=== PATIENT | male | born 1985 | race Two or more races ===

== ENCOUNTER 2018-01-11 17:12 | Emergency (ER) | payer OTHER ==
[~2018-01-11] VITALS: Ht 185.4 cm; Wt 88.5 kg
[~2018-01-11 17:12] MED LIST: AMOX1TAB12 PO; CEFADROXIL500 MG PO; CORTISPORIN EAR10 M1 OT; GILTUSS TR TAB1 EACH PO; ORASEP SPRAY30 ML MM; ZYRTEC10 MG PO
== END 2018-01-11 21:53 | disposition home or self-care (01) ==
LOC: ER 17:12
DX: J03.80 Acute tonsillitis due to other specified organisms (principal)

== ENCOUNTER 2018-08-07 13:38 | Outpatient (CLI) | payer OTHER | END 2018-08-07 13:51 | disposition home or self-care (01) | LOC: LAB 13:38 | DX: J11.1 Influenza due to unidentified influenza virus with other respiratory manifestations (principal) ==

== ENCOUNTER 2018-10-22 08:07 | Outpatient (CLI) | payer OTHER | END 2018-10-22 09:18 | disposition home or self-care (01) | LOC: LAB 08:07 | DX: Z11.3 Encounter for screening for infections with a predominantly sexual mode of transmission (principal) ==

== ENCOUNTER 2019-01-17 06:49 | Outpatient (CLI) | payer OTHER | END 2019-01-17 15:45 | disposition home or self-care (01) | LOC: LAB 06:49 | DX: R42 Dizziness and giddiness (principal); E78.49 Other hyperlipidemia; Z00.00 Encounter for general adult medical examination without abnormal findings ==

== ENCOUNTER → 2019-03-18 14:47 | Outpatient (CLI) | payer OTHER | END | disposition home or self-care (01) | LOC: LAB 03-14 12:11 | DX: E78.2 Mixed hyperlipidemia (principal); E55.9 Vitamin D deficiency, unspecified; E03.8 Other specified hypothyroidism; Z13.1 Encounter for screening for diabetes mellitus; Z11.3 Encounter for screening for infections with a predominantly sexual mode of transmission; Z11.4 Encounter for screening for human immunodeficiency virus [HIV] ==

== ENCOUNTER 2019-04-14 15:37 | Outpatient (CLI) | payer OTHER | END 2019-04-14 15:43 | disposition home or self-care (01) | LOC: LAB 15:37 | DX: J11.1 Influenza due to unidentified influenza virus with other respiratory manifestations (principal); B96.0 Mycoplasma pneumoniae [M. pneumoniae] as the cause of diseases classified elsewhere ==

== ENCOUNTER 2019-06-26 07:30 | Outpatient (CLI) | payer OTHER | END 2019-06-26 07:31 | disposition home or self-care (01) | LOC: LAB 07:30 | DX: Z00.00 Encounter for general adult medical examination without abnormal findings (principal); Z11.4 Encounter for screening for human immunodeficiency virus [HIV] ==

== ENCOUNTER 2019-09-04 07:38 | Outpatient (CLI) | payer OTHER | END 2019-09-04 07:39 | disposition home or self-care (01) | LOC: LAB 07:38 | DX: Z00.00 Encounter for general adult medical examination without abnormal findings (principal); Z11.4 Encounter for screening for human immunodeficiency virus [HIV] ==

== ENCOUNTER 2019-09-08 17:38 | Outpatient (CLI) | payer OTHER | END 2019-09-08 18:00 | disposition home or self-care (01) | LOC: LAB 17:38 | DX: J11.1 Influenza due to unidentified influenza virus with other respiratory manifestations (principal); J20.0 Acute bronchitis due to Mycoplasma pneumoniae ==

== ENCOUNTER 2019-09-30 06:15 | Emergency (ER) | payer OTHER ==
[~2019-09-30] VITALS: Ht 185.4 cm; Wt 83.9 kg
== END 2019-09-30 18:05 | disposition home or self-care (01) ==
LOC: ER 06:15
DX: J03.90 Acute tonsillitis, unspecified (principal); R11.2 Nausea with vomiting, unspecified

== ENCOUNTER → 2019-12-05 15:53 | Outpatient (CLI) | payer OTHER | END | disposition home or self-care (01) | LOC: LAB 15:53 | DX: J11.1 Influenza due to unidentified influenza virus with other respiratory manifestations (principal); J06.9 Acute upper respiratory infection, unspecified ==

== ENCOUNTER → 2020-03-08 13:55 | Outpatient (CLI) | payer OTHER | END | disposition home or self-care (01) | LOC: LAB 11:37 | DX: Z00.00 Encounter for general adult medical examination without abnormal findings (principal); Z11.3 Encounter for screening for infections with a predominantly sexual mode of transmission; E78.49 Other hyperlipidemia; E55.9 Vitamin D deficiency, unspecified; I10 Essential (primary) hypertension; N39.0 Urinary tract infection, site not specified ==

== ENCOUNTER 2020-04-26 18:47 | Emergency (ER) | payer OTHER ==
[~2020-04-26] VITALS: Ht 185.4 cm; Wt 88.9 kg
== END 2020-04-26 21:02 | disposition home or self-care (01) ==
LOC: ER 18:47
DX: J03.80 Acute tonsillitis due to other specified organisms (principal)

== ENCOUNTER 2020-05-05 10:42 | Outpatient (CLI) | payer OTHER | END 2020-05-05 10:56 | disposition home or self-care (01) | LOC: LAB 10:42 | PROVIDERS: ATTEND General Practice | DX: J11.1 Influenza due to unidentified influenza virus with other respiratory manifestations (principal); R05 Cough; Z11.59 Encounter for screening for other viral diseases; R53.81 Other malaise; Z20.828 Contact with and (suspected) exposure to other viral communicable diseases ==

== ENCOUNTER → 2020-06-18 06:34 | Outpatient (CLI) | payer OTHER ==
[~2020-06-18 06:34] MED LIST changes: +AMOX-CLAV 875-1 EACH PO
== END | disposition home or self-care (01) ==
LOC: LAB 06-15 14:41
PROVIDERS: ATTEND General Practice
DX: N39.0 Urinary tract infection, site not specified (principal); Z11.3 Encounter for screening for infections with a predominantly sexual mode of transmission; Z00.00 Encounter for general adult medical examination without abnormal findings; E78.49 Other hyperlipidemia; E55.9 Vitamin D deficiency, unspecified; R42 Dizziness and giddiness

== ENCOUNTER → 2020-07-06 14:00 | Outpatient (CLI) | payer OTHER | END | disposition home or self-care (01) | LOC: LAB 14:00 | PROVIDERS: ATTEND General Practice | DX: R05 Cough (principal); Z20.828 Contact with and (suspected) exposure to other viral communicable diseases; R50.9 Fever, unspecified; R06.02 Shortness of breath ==

== ENCOUNTER 2020-07-15 06:47 | Emergency (ER) | payer OTHER ==
[~2020-07-15] VITALS: Ht 185.4 cm; Wt 86.2 kg
[~2020-07-15 06:47] MED LIST changes: -AMOX-CLAV 875-1 EACH PO
[2020-07-15] MEDS ORDERED: AMOX-CLAV 875-1 EACH PO (07:56)
[2020-07-15] MEDS ORDERED: ORASEP SPRAY30 ML MM ×2 (07:58→07:59)
== END 2020-07-15 08:15 | disposition home or self-care (01) ==
LOC: ER 06:47
DX: J03.80 Acute tonsillitis due to other specified organisms (principal)

== ENCOUNTER 2020-07-16 16:02 | Outpatient (CLI) | payer OTHER ==
[~2020-07-16 16:02] MED LIST changes: +AMOX-CLAV 875-1 EACH PO
== END 2020-07-16 17:00 | disposition home or self-care (01) ==
LOC: OFIC 805 16:02
PROVIDERS: ATTEND Otolaryngology Otology & Neurotology
DX: J02.8 Acute pharyngitis due to other specified organisms (principal)

== ENCOUNTER 2020-07-23 10:00 | Outpatient (CLI) | payer OTHER | END 2020-07-23 15:00 | disposition home or self-care (01) | LOC: PPH VACUNA 10:00 | DX: Z23 Encounter for immunization (principal) ==

== ENCOUNTER 2020-07-27 13:50 | Outpatient (CLI) | payer OTHER | END 2020-07-27 13:54 | disposition home or self-care (01) | LOC: LAB 13:50 | PROVIDERS: ATTEND General Practice | DX: R05 Cough (principal); Z00.00 Encounter for general adult medical examination without abnormal findings; Z11.4 Encounter for screening for human immunodeficiency virus [HIV] ==

== ENCOUNTER 2020-09-01 13:49 | Emergency (ER) | payer OTHER ==
[~2020-09-01] VITALS: Ht 185.4 cm; Wt 83.9 kg
== END 2020-09-01 22:30 | disposition home or self-care (01) ==
LOC: ER 13:49
DX: J03.80 Acute tonsillitis due to other specified organisms (principal); R19.7 Diarrhea, unspecified

== ENCOUNTER 2020-09-20 09:49 | Outpatient (CLI) | payer OTHER | END 2020-09-20 09:53 | disposition home or self-care (01) | LOC: LAB 09:49 | DX: Z20.828 Contact with and (suspected) exposure to other viral communicable diseases (principal) ==

== ENCOUNTER 2020-10-19 15:28 | Outpatient (CLI) | payer OTHER | END 2020-10-19 18:00 | disposition home or self-care (01) | LOC: PPH VACUNA 15:28 → LAB 10-27 12:54 → PPH VACUNA 10-27 12:58 | DX: Z23 Encounter for immunization (principal) ==

== ENCOUNTER 2020-11-15 06:39 | Outpatient (CLI) | payer OTHER | END 2020-11-15 07:18 | disposition home or self-care (01) | LOC: LAB 06:39 | DX: Z00.00 Encounter for general adult medical examination without abnormal findings (principal); Z11.4 Encounter for screening for human immunodeficiency virus [HIV] ==

== ENCOUNTER 2021-01-06 15:24 | Outpatient (CLI) | payer OTHER | END 2021-01-06 15:25 | disposition home or self-care (01) | LOC: LAB 15:24 | PROVIDERS: ATTEND General Practice | DX: Z00.00 Encounter for general adult medical examination without abnormal findings (principal); Z11.3 Encounter for screening for infections with a predominantly sexual mode of transmission; E78.5 Hyperlipidemia, unspecified ==

== ENCOUNTER 2021-05-18 06:19 | Outpatient (CLI) | payer OTHER | END 2021-05-18 06:20 | disposition home or self-care (01) | LOC: LAB 06:19 | PROVIDERS: ATTEND Surgery | DX: Z00.00 Encounter for general adult medical examination without abnormal findings (principal) ==

== ENCOUNTER 2021-06-07 14:14 | Outpatient (CLI) | payer OTHER | END 2021-06-07 16:20 | disposition home or self-care (01) | LOC: LAB 14:14 | PROVIDERS: ATTEND General Practice | DX: R06.02 Shortness of breath (principal); Z03.818 Encounter for observation for suspected exposure to other biological agents ruled out; R50.9 Fever, unspecified ==

== ENCOUNTER 2021-06-09 07:15 | Emergency (ER) | payer OTHER ==
[~2021-06-09] VITALS: Ht 185.4 cm; Wt 83.9 kg
== END 2021-06-09 11:28 | disposition home or self-care (01) ==
LOC: ER 07:15
DX: J03.00 Acute streptococcal tonsillitis, unspecified (principal)

== ENCOUNTER → 2021-06-24 10:22 | Outpatient (CLI) | payer OTHER | END | disposition home or self-care (01) | LOC: LAB 10:22 | PROVIDERS: ATTEND Emergency Medicine Pediatric Emergency Medicine | DX: Z03.818 Encounter for observation for suspected exposure to other biological agents ruled out (principal) ==

== ENCOUNTER 2021-08-01 12:55 | Outpatient (CLI) | payer OTHER | END 2021-08-01 13:05 | disposition home or self-care (01) | LOC: PPH VACUNA 12:55 | DX: Z23 Encounter for immunization (principal) ==

== ENCOUNTER 2021-08-31 07:14 | Outpatient (CLI) | payer OTHER | END 2021-08-31 14:40 | disposition home or self-care (01) | LOC: LAB 07:14 | PROVIDERS: ATTEND General Practice | DX: N42.89 Other specified disorders of prostate (principal); Z00.00 Encounter for general adult medical examination without abnormal findings; E78.49 Other hyperlipidemia; E55.9 Vitamin D deficiency, unspecified; Z11.3 Encounter for screening for infections with a predominantly sexual mode of transmission; N39.0 Urinary tract infection, site not specified ==

== ENCOUNTER 2021-09-27 07:17 | Outpatient (CLI) | payer OTHER | END 2021-09-27 07:20 | disposition home or self-care (01) | LOC: TOM 07:17 | PROVIDERS: ATTEND Internal Medicine Cardiovascular Disease | DX: R07.89 Other chest pain (principal); J44.9 Chronic obstructive pulmonary disease, unspecified; R10.84 Generalized abdominal pain; R63.4 Abnormal weight loss ==

== ENCOUNTER 2021-10-05 11:59 | Outpatient (CLI) | payer OTHER | END 2021-10-05 18:00 | disposition home or self-care (01) | LOC: LAB 11:59 | PROVIDERS: ATTEND Emergency Medicine Pediatric Emergency Medicine | DX: Z03.818 Encounter for observation for suspected exposure to other biological agents ruled out (principal) ==

== ENCOUNTER 2021-10-25 11:33 | Outpatient (CLI) | payer OTHER | END 2021-10-25 15:00 | disposition home or self-care (01) | LOC: LAB 11:33 | PROVIDERS: ATTEND Emergency Medicine Pediatric Emergency Medicine | DX: J03.80 Acute tonsillitis due to other specified organisms (principal) ==

== ENCOUNTER 2021-10-26 07:13 | Emergency (ER) | payer OTHER ==
[~2021-10-26] VITALS: Ht 185.4 cm; Wt 83.9 kg
== END 2021-10-26 09:01 | disposition home or self-care (01) ==
LOC: ER 07:13
DX: J35.01 Chronic tonsillitis (principal); H66.91 Otitis media, unspecified, right ear

== ENCOUNTER 2021-10-28 08:00 | Outpatient (CLI) | payer OTHER | END 2021-10-28 15:00 | disposition home or self-care (01) | LOC: LAB 08:00 | PROVIDERS: ATTEND Emergency Medicine Pediatric Emergency Medicine | DX: Z03.818 Encounter for observation for suspected exposure to other biological agents ruled out (principal) ==

== ENCOUNTER 2022-01-09 06:42 | Outpatient (CLI) | payer OTHER | END 2022-01-09 06:44 | disposition home or self-care (01) | LOC: LAB 06:42 | PROVIDERS: ATTEND General Practice | DX: E78.5 Hyperlipidemia, unspecified (principal); Z00.00 Encounter for general adult medical examination without abnormal findings; E55.9 Vitamin D deficiency, unspecified; N39.0 Urinary tract infection, site not specified; R42 Dizziness and giddiness; Z11.3 Encounter for screening for infections with a predominantly sexual mode of transmission ==

== ENCOUNTER 2022-03-01 09:06 | Outpatient (CLI) | payer OTHER | END 2022-03-01 15:00 | disposition home or self-care (01) | LOC: LAB 09:06 | PROVIDERS: ATTEND Emergency Medicine Pediatric Emergency Medicine | DX: U07.1 COVID-19 (principal) ==

== ENCOUNTER 2022-07-26 08:00 | Outpatient (CLI) | payer OTHER | END 2022-07-26 08:05 | disposition home or self-care (01) | LOC: PPH VACUNA 08:00 | PROVIDERS: ATTEND Emergency Medicine Pediatric Emergency Medicine | DX: Z23 Encounter for immunization (principal) ==

== ENCOUNTER 2022-07-26 10:57 | Outpatient (CLI) | payer OTHER | END 2022-07-26 11:02 | disposition home or self-care (01) | LOC: PPH VACUNA 10:57 | PROVIDERS: ATTEND Emergency Medicine Pediatric Emergency Medicine | DX: Z23 Encounter for immunization (principal) ==

== ENCOUNTER → 2022-08-21 | Outpatient (CLI) | payer OTHER | END | disposition home or self-care (01) | LOC: LAB 14:52 | PROVIDERS: ATTEND General Practice | DX: R05.9 Cough, unspecified (principal); R06.02 Shortness of breath; Z20.822 Contact with and (suspected) exposure to COVID-19; R50.9 Fever, unspecified ==

== ENCOUNTER 2022-10-25 12:49 | Outpatient (CLI) | payer OTHER | END 2022-10-25 12:59 | disposition home or self-care (01) | LOC: LAB 12:49 | PROVIDERS: ATTEND Obstetrics & Gynecology | DX: Z20.828 Contact with and (suspected) exposure to other viral communicable diseases (principal); Z20.818 Contact with and (suspected) exposure to other bacterial communicable diseases ==

== ENCOUNTER 2022-11-29 11:04 | Outpatient (CLI) | payer OTHER | END 2022-11-29 11:15 | disposition home or self-care (01) | LOC: LAB 11:04 → EDBD 11:04 → LAB 11:15 | PROVIDERS: ATTEND Obstetrics & Gynecology | DX: R05.9 Cough, unspecified (principal); R50.9 Fever, unspecified; R06.02 Shortness of breath; Z20.822 Contact with and (suspected) exposure to COVID-19 ==

== ENCOUNTER 2023-03-29 14:35 | Outpatient (CLI) | payer OTHER | END 2023-03-29 14:38 | disposition home or self-care (01) | LOC: LAB 14:35 | PROVIDERS: ATTEND General Practice | DX: R50.9 Fever, unspecified (principal); R05.9 Cough, unspecified; Z20.822 Contact with and (suspected) exposure to COVID-19 ==

== ENCOUNTER → 2023-07-05 | Outpatient (CLI) | payer OTHER | END | disposition home or self-care (01) | LOC: PPH VACUNA 08:59 | PROVIDERS: ATTEND Emergency Medicine Pediatric Emergency Medicine | DX: Z23 Encounter for immunization (principal) ==

== ENCOUNTER → 2024-01-11 | Outpatient (CLI) | payer OTHER ==
[2024-01-11 07:38] LABS: HEMATOCRIT 45.7 % (39.0-48.0); MEAN CORPUSCULAR HEMOGLOBIN 30.4 pg (27.00-32.0); MEAN CORPUSCULAR HGB CONC 34.9 g/dl (32.0-36.0); PLATELET COUNT 276 K/uL (150-450); RED BLOOD COUNT 5.26 M/uL (4.00-6.00); RED CELL DISTRIBUTION WIDTH 14.6 % (11.5-14.5)
[2024-01-11 07:40] LABS: URINE APPEARANCE Clear; URINE BILIRRUBIN Negative (NEGATIVE); URINE BLOOD Negative; URINE COLOR Yellow; URINE GLUCOSE Negative (NEGATIVE); URINE LEUKOCYTE Negative; URINE NITRATE Negative; URINE PROTEIN Trace (NEGATIVE)
[2024-01-11 07:44] LABS: URINE BACTERIA 12.5 uL (0.0-1933); URINE EPITHELIAL CELLS 2.4 uL (0.0-38.8); URINE RBC 4.8 uL (0.0-20.8); URINE WBC 8.3 uL (0.0-23.2)
[2024-01-11 08:10] LABS: ALBUMIN 3.9 gm/dL (3.4-5.0); ALKALINE PHOSPHATASE 69 U/L (50-136); ALT/SGPT 35 U/L (12-78); ANION GAP 5 (10.0-20.0); AST/SGOT 10 U/L (15-37); BILIRUBIN TOTAL 0.28 mg/dL (0.3-1.2); BILIRUBIN,CONJUGATED < 0.10 mg/dL (0.0-0.2); BILIRUBIN,UNCONJUGATED 0.18 mg/dL (0.0-0.6); BLOOD UREA NITROGEN 13 mg/dL (7-18); BUN CREA RATIO 13 (7.0-25.0); CALCIUM 8.8 mg/dL (8.5-10.1); CARBON DIOXIDE 32 mEq/L (21-32); CHLORIDE 106 mmol/L (98-107); CHOL HDL RATIO 5.5 (0-5.0); CHOLESTEROL 186 mg/dL (0-200); CREATININE SERUM 1.03 mg/dL (0.70-1.30); GLOBULINA 3.8 G/DL (2.4-3.5); GLUCOSE FASTING 115 mg/dL (65-100); HDL 34 mg/dl (40-60); LDL 103 mg/dl (0-130); OSMOLALITY SERUM 279 MOSM/KG (275-295); POTASSIUM 4.04 mEq/L (3.5-5.1); SODIUM 139 mmol/L (136-145); T3 UPTAKE 35 % (33-40); TOTAL PROTEIN 7.7 gm/dL (6.4-8.2); VLDL 49 (0-39)
[2024-01-11 08:12] LABS: TRIGLYCERIDES 247 mg/dL (0-150)
[2024-01-11 09:48] LABS: T3 TOTAL 1.38 ng/ml (0.846-2.02); VITAMIN D3 25 HYDROXY 32.39 ng/ml (30-120)
== END | disposition home or self-care (01) ==
LOC: LAB 01-07 14:52
PROVIDERS: ATTEND General Practice
DX: Z00.00 Encounter for general adult medical examination without abnormal findings (principal); E78.5 Hyperlipidemia, unspecified; E55.9 Vitamin D deficiency, unspecified; N39.0 Urinary tract infection, site not specified; R42 Dizziness and giddiness; R10.9 Unspecified abdominal pain

== ENCOUNTER 2024-08-14 13:28 | Outpatient (CLI) | payer OTHER | END 2024-08-14 15:05 | disposition home or self-care (01) | LOC: LAB 13:28 | DX: J10.1 Influenza due to other identified influenza virus with other respiratory manifestations (principal); Z11.52 Encounter for screening for COVID-19 ==

== ENCOUNTER 2025-02-05 08:47 | Outpatient (CLI) | payer OTHER ==
[2025-02-05 10:20] LABS: HEMATOCRIT 46.6 % (39.0-48.0); HEMOGLOBIN 15.6 g/dL (13-16.00); MEAN CELL VOLUME 89.6 fL (80.0-100.00); MEAN CORPUSCULAR HEMOGLOBIN 29.9 pg (27.00-32.0); MEAN CORPUSCULAR HGB CONC 33.4 g/dl (32.0-36.0); PLATELET COUNT 261 K/uL (150-450); RED CELL DISTRIBUTION WIDTH 14.7 % (11.5-14.5)
[2025-02-05 11:10] LABS: ALBUMIN 3.9 gm/dL (3.4-5.0); BILIRUBIN TOTAL 0.46 mg/dL (0.3-1.2); CALCIUM 8.7 mg/dL (8.5-10.1); CHOL HDL RATIO 3.9 (0-5.0); CREATININE SERUM 0.91 mg/dL (0.70-1.30); GFR 92.27; GLOBULINA 3.9 G/DL (2.4-3.5); POTASSIUM 4.29 mEq/L (3.5-5.1); TOTAL PROTEIN 7.8 gm/dL (6.4-8.2); TSH 1.85 uIU/mL (0.358-3.74)
[2025-02-06 09:07] LABS: hav igm Negative (Negative); hcv Non Reactive (Non Reactive); hep b c Negative (Negative); hep b s ag Negative (Negative)
[2025-02-06 11:11] LABS: INSULIN LEVELS 11.5 uIU/mL (2.6-24.9)
[2025-02-06 13:06] LABS: a:g ratio 1.1 (0.7-1.7); alpha 1 g 0.2 g/dL (0.0-0.4); alpha 2 0.6 g/dL (0.4-1.0); beta g 1.2 g/dL (0.7-1.3); gamma g 1.5 g/dL (0.4-1.8); globulin t 3.5 g/dL (2.2-3.9); m spike Not Observed g/dL (Not Observed); prot total 7.4 g/dL (6.0-8.5)
== END 2025-02-05 08:54 | disposition home or self-care (01) ==
LOC: LAB 08:47 → EDBD 08:47 → LAB 08:54
PROVIDERS: ATTEND Internal Medicine
DX: D64.9 Anemia, unspecified (principal); E11.9 Type 2 diabetes mellitus without complications; Z00.00 Encounter for general adult medical examination without abnormal findings; I10 Essential (primary) hypertension

== ENCOUNTER 2025-03-03 14:05 | Outpatient (CLI) | payer OTHER ==
[2025-03-03 14:51] LABS: COVID-19 AG NEGATIVE (NEGATIVE)
[2025-03-03 14:52] LABS: INFLUENZA A AG NEGATIVE (NEGATIVE)
== END 2025-03-03 14:08 | disposition home or self-care (01) ==
LOC: LAB 14:05
PROVIDERS: ATTEND Preventive Medicine Occupational Medicine
DX: Z20.828 Contact with and (suspected) exposure to other viral communicable diseases (principal); J11.1 Influenza due to unidentified influenza virus with other respiratory manifestations

== ENCOUNTER 2025-06-01 12:08 | Emergency (ER) | payer OTHER ==
[~2025-06-01] VITALS: Ht 185.4 cm; Wt 90.7 kg
[2025-06-01] MEDS ORDERED: KETOROLAC TROMETHAMINE 30 MG VIAL IV ONE (13:15)
== END 2025-06-02 18:14 | disposition home or self-care (01) ==
LOC: ER 12:08
DX: I10 Essential (primary) hypertension (principal)

== ENCOUNTER 2025-06-16 08:43 | Outpatient (CLI) | payer OTHER ==
[2025-06-16 13:08] LABS: COVID-19 AG NEGATIVE (NEGATIVE)
== END 2025-06-16 12:44 | disposition home or self-care (01) ==
LOC: LAB 08:43
PROVIDERS: ATTEND Preventive Medicine Occupational Medicine
DX: J11.1 Influenza due to unidentified influenza virus with other respiratory manifestations (principal); Z20.828 Contact with and (suspected) exposure to other viral communicable diseases

== ENCOUNTER 2025-09-16 06:30 | Outpatient (CLI) | payer OTHER ==
[2025-09-16 06:54] LABS: BASO % 0.3 % (0.1-1.2); EOS # 0.25 (0.04-0.54); EOS % 3.7 % (0.7-7.0); LYMPH # 2.10 (1.18-3.74); LYMPH % 30.8 % (19.3-53.1); MEAN PLATELET VOLUME 10.70 fl (9.4-12.4); MONO # 0.64 (0.24-0.82); MONO % 9.4 % (4.7-12.5); NEUT # 3.79 (1.56-6.13); NEUT % 55.7 % (34.0-71.1); RED CELL DISTRIBUTION WIDTH 13.5 % (11.6-14.4)
[2025-09-16 07:31] LABS: ALT/SGPT 31.0 U/L (12-78); AST/SGOT 13.0 U/L (15-37); BILIRUBIN TOTAL 0.31 mg/dL (0.3-1.2); BUN CREA RATIO 18.0 (7.0-25.0); CHOL HDL RATIO 5.8 (0-5.0); CREATININE SERUM 0.9 mg/dL (0.70-1.30); GFR 93.46; GLOBULINA 3.7 G/DL (2.4-3.5); GLUCOSE FASTING 106.0 mg/dL (65-100); HDL 29.0 mg/dl (40-60); LDL 65.0 mg/dl (0-130); OSMOLALITY SERUM 288.0 MOSM/KG (275-295); TSH 2.3 uIU/mL (0.358-3.74); VLDL 73.0 (0-39)
== END 2025-09-16 06:35 | disposition home or self-care (01) ==
LOC: LAB 06:30
PROVIDERS: ATTEND Preventive Medicine Public Health & General Preventive Medicine
DX: I10 Essential (primary) hypertension (principal); Z00.00 Encounter for general adult medical examination without abnormal findings; J11.1 Influenza due to unidentified influenza virus with other respiratory manifestations